=== PATIENT | male | born 1990 | race Caucasian/White ===

== ENCOUNTER 2018-08-17 02:11 | Emergency (ER) | payer OTHER ==
[~2018-08-17] VITALS: Ht 180.3 cm; Wt 90.7 kg
[2018-08-17] MEDS ORDERED: SYNTHROID50 MCG PO (02:41)
[2018-08-17] MEDS ORDERED: CLONIDINE0.1 PO (02:43)
[2018-08-17] MEDS ORDERED: SOLARCAINE COO127 GM TOP (02:52)
[2018-08-17] MEDS ORDERED: IBUPROFEN 800800 M1 PO (02:52)
[2018-08-17 03:07] VITALS: BP 135/94
== END 2018-08-17 03:07 | disposition home or self-care (01) ==
LOC: ER 02:11
DX: L55.1 Sunburn of second degree (principal); F17.210 Nicotine dependence, cigarettes, uncomplicated